=== PATIENT | female | born 1985 | race Caucasian/White ===

== ENCOUNTER → 2020-11-14 10:27 | Outpatient (CLI) | payer OTHER, SELFPAY ==
[2020-11-14 12:08] LABS: Add Manual Diff / Slide Review NO; Basophils Absolute Auto 0 /uL (0-100); Basophils Percent Auto 0.2 % (0-2); Eosinophils Absolute Auto 0 /uL (0-450); Eosinophils Percent Auto 0.6 % (2-4); Hematocrit 33.6 % (36-46); Hemoglobin 11.4 g/dL (12.0-16.0); Lymphocytes Absolute Auto 1400 /uL (1100-4500); Lymphocytes Percent Auto 21.8 % (25-40); Mean Corpuscular HGB Conc 33.8 % (30-36); Mean Corpuscular Volume 100.4 fL (80-100); Monocytes Absolute Auto 300 /uL (0-900); Monocytes Percent Auto 4.2 % (3-14); Neutrophils Absolute Auto 4600 /uL (1500-7000); Neutrophils Percent Auto 73.2 % (50-75); Platelet Count 213 X10^3/uL (150-400); Red Blood Cell Count 3.34 X10^6/uL (4.0-5.2); Red Cell Distribution Width 13.6 % (11.6-14.8); White Blood Cell Count 6.4 X10^3/uL (4.5-11.0)
[2020-11-14 12:32] LABS: Alanine Aminotransferase 15 IU/L (<35); Albumin 3.7 g/dL (3.5-5.0); Albumin Globulin Ratio 1.5 (1.0-2.8); Alkaline Phosphatase 46 U/L (38-126); Aspartate Aminotransferase 20 IU/L (14-36); BUN Creatinine Ratio 13.3 (6-22); Bilirubin Total 0.2 mg/dL (0.2-1.3); Blood Urea Nitrogen 6 mg/dL (7-17); Calcium 9.5 mg/dL (8.4-10.2); Carbon Dioxide 25 mmol/L (22-32); Chloride 101 mmol/L (98-107); Estimated Glomerular Filt Rate > 60.0 mL/min (>60); Globulin 2.4 g/dL (1.7-4.1); Glucose 91 mg/dL (70-100); HEMOLYSIS < 15 (0-50); Potassium 4.1 mmol/L (3.4-5.1); Sodium 133 mmol/L (137-145); Total Protein 6.1 g/dL (6.3-8.2)
[2020-11-14 13:20] LABS: Vitamin B12 328 pg/mL (239-931)
[2020-11-17 21:07] LABS: Gest Age on Col Date 17.9 weeks (.); Insulin Dep Diabetes No (.); OSBR Risk 1IN 10000 (.); Results Report (.); Test Results *Screen Negative* (.)
== END ==
PROVIDERS: Internal Medicine Hematology & Oncology; PCP Family Medicine; Referring Provider Specialist; Visit Provider Specialist
DX: O09.522 Supervision of elderly multigravida, second trimester (principal); E53.8 Deficiency of other specified B group vitamins; Z36.0 Encounter for antenatal screening for chromosomal anomalies
CPT/HCPCS: 36415; 80053; 82105; 82607; 85025

== ENCOUNTER → 2020-11-30 10:51 | Outpatient (CLI) | payer OTHER, SELFPAY ==
--- NOTE | 2020-11-30 10:52 | DI.US.S_ITS ---
PROCEDURE: US OB >= 14 WEEKS FETUS INDICATIONS: 20 week anatomy OUTSIDE/PRIOR DATING DATA: Last menstrual period (LMP): 07/12/2020. LMP-based estimated date of delivery (TERRA): 04/18/2021. First dating scan (date and location): 10/30/2020 at clinician's office. Estimated date of delivery (TERRA) from first dating scan: 04/12/2021. TECHNIQUE: Real-time scanning was performed of the fetus, with image documentation and biometric measurements. Endovaginal scanning: Not performed COMPARISON: [facility], , OB >= 14 WEEKS FETUS, 10/30/2020, 14:41. FINDINGS: General: A single living intrauterine gestation is present. Presentation: Vertex. Placenta: Placental position is posterior , without previa. Amniotic fluid index: 13.3 cm, normal range is 5-24 cm; largest pocket 4.8 cm. heart rate: 143 beats per minute. Maternal cervical canal: 4.5 cm long. Normal lower limit is 2.5 cm. biometrics: Biparietal diameter: 21 weeks 1 day Head circumference: 21 weeks 0 day Abdominal circumference: 21 weeks 6 days Femur length: 21 weeks 1 day Estimated gestational age from initial scan: 21 weeks 0 day. Composite gestational age from present scan: 21 weeks 2 days Estimated weight and percentile: 427 gm; 71% Measurement variability for biometric dating: +/- 7 days from 14 weeks to 15 weeks 6 days gestation, +/- 10 days from 16 weeks to 21 weeks 6 days gestation, +/- 2 weeks from 22 weeks to 27 weeks 6 days gestation, +/- 3 weeks for 28 weeks gestation or later. weight reference: 4500 g or EFW >90/95% is considered macrosomia or large for gestational age. EFW <10% is small for gestational age. EFW 5% or less is considered intra-uterine growth restriction. Anatomic survey: Neuro: Ventricles are non-dilated at less than 10 mm. Cisterna magna is normal at 3-11 mm. Cerebellum is normal in size and morphology. Nuchal skin fold: Normal at less than 6 mm between 14-21 weeks gestational age. Face: Nose and lips, facial profile are normal. Spine: No evidence for spina bifida. Heart: 4-chambered heart is present, with normal ventricular outflow tracts. Diaphragm: Diaphragm is intact. Stomach: Left-sided stomach is present. Kidneys: No hydronephrosis. Normal is less than 5 mm in 2nd trimester, less than 7 mm in 3rd trimester. Cord: 3-vessel cord has orthotopic insertion. Bladder: Normal in size. Extremities: All 4 extremities identified. IMPRESSION: 1. A single living intrauterine gestation with appropriate interval growth. 2. Normal anatomic survey. Dictated by: Charisse Landry M.D. on 12/01/2020 at 17:31 Approved by: Charisse Landry M.D. on 12/01/2020 at 17:34
== END ==
PROVIDERS: PCP Family Medicine; Referring Provider Specialist; Visit Provider Specialist
DX: Z34.82 Encounter for supervision of other normal pregnancy, second trimester (principal); Z3A.21 21 weeks gestation of pregnancy
CPT/HCPCS: 76811

== ENCOUNTER 2021-02-01 16:19 | Observation (INO) | payer OTHER, SELFPAY ==
[2021-02-01 16:45] LABS: Add Manual Diff / Slide Review NO; Basophils Absolute Auto 0 /uL (0-100); Basophils Percent Auto 0.2 % (0-2); Eosinophils Absolute Auto 100 /uL (0-450); Eosinophils Percent Auto 0.8 % (2-4); Hematocrit 32.8 % (36-46); Hemoglobin 11.3 g/dL (12.0-16.0); Lymphocytes Absolute Auto 1800 /uL (1100-4500); Lymphocytes Percent Auto 22.8 % (25-40); Mean Corpuscular HGB Conc 34.3 % (30-36); Mean Corpuscular Hemoglobin 34.6 PG (26-34); Mean Corpuscular Volume 100.8 fL (80-100); Monocytes Absolute Auto 400 /uL (0-900); Monocytes Percent Auto 5.7 % (3-14); Neutrophils Absolute Auto 5500 /uL (1500-7000); Neutrophils Percent Auto 70.5 % (50-75); Platelet Count 237 X10^3/uL (150-400); Red Blood Cell Count 3.26 X10^6/uL (4.0-5.2); Red Cell Distribution Width 13.6 % (11.6-14.8); White Blood Cell Count 7.8 X10^3/uL (4.5-11.0)
[2021-02-01 16:46] LABS: Appearance Urine UA CLEAR; Bilirubin Urine UA NEGATIVE (NEGATIVE); Color Urine UA YELLOW; Glucose Urine UA NEGATIVE (Negative); Ketones Urine UA NEGATIVE (NEGATIVE); Leukocyte Esterase Urine UA TRACE (NEGATIVE); Nitrite Urine UA NEGATIVE (Negative); Occult Blood Urine UA NEGATIVE (Negative); Protein Urine UA NEGATIVE (Negative); RBC Urine None Seen (0-5/HPF); Specific Gravity Urine UA <=1.005 (1.000-1.035); Urobilinogen Urine UA 0.2 E.U./dL (0.2)
[2021-02-01 16:47] LABS: pH Urine UA 6.5 (4.5-8.0)
[2021-02-01 16:53] LABS: Bacteria Urine Occasional (0-1); Culture Indicated Urine Specimen Cultured; Squamous Epithelial Cell Urine 0-1 /HPF (0-5/HPF); WBC Urine 1-5/HPF (0-5/HPF)
[2021-02-01 17:00] LABS: Aspartate Aminotransferase 21 IU/L (14-36); BUN Creatinine Ratio 15.2 (6-22); Blood Urea Nitrogen 7 mg/dL (7-17); Estimated Glomerular Filt Rate > 60.0 mL/min (>60); Uric Acid 2.7 mg/dL (2.5-6.2)
--- NOTE | 2021-02-01 17:26 | P.TNLD_ITS ---
Visit Information Visit Information Date of evaluation: 02/01/21 Primary OB Provider: Rebekah Gomez On-call OB Provider: Lian Taylor Reason for Evaluation: Yes non-stress test Comments/Additional reasons for admission: THis patient is a 35yo @29+1 with a c/b cHTN having declined labetalo, smoking, and morbid obesity, presenting for [facility] evaluation. Patient reports RONDON, upper abdominal pain with 'roller coaster drop feeling,' fatigue, concern for excessive yawning. No obstet rical complaints. Vital Signs Vital Signs: 117/72, 126/68, HR 80s [facility] Medical History Anemia Anxiety (~2005) Chronic hypertension (~08/2020) Depression (~2005) Dysmenorrhea (~1999) Endometriosis (~2002) Food allergy Lower back injury (~2014) Migraine (~2014) Morbid obesity Neuropathy (~2014) Surgical History Hx of wisdom tooth extraction (~2005) Family History Mother Hypertension Depression PTSD (post-traumatic stress disorder) Anxiety Endometriosis Father H/O heart artery stent Smoker Hypertension Grandmother Thyroid disease Dementia Depression Endometriosis Grandfather No problems noted. 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 ) current occupational exposures/hazards: No haider/druze: Orthodox special haider needs: No seatbelt use: always do you feel safe at home: Yes (Very safe. ) Smoking Status: Current every day smoker (Cut down to 4-5 cigs/day, trying to completely quit, struggling. ) Tobacco: How many years used: 10 second hand exposure: Yes ( also smokes. ) alcohol intake: current (2 beers a week) substance use type: does not use during the past year weight has: increased > 10 lbs well-balanced diet: daily or most days (Eating better this last month; Apr - Aug did not have a kitchen;mostly microwave prior.) daily servings fruits/ve-1 caffeine: Yes Type(s) of exercise: walking (Trying to walk a mile on the track when she can. ) and sedentary lifestyle Exam Narrative Exam Narrative: Well appearing resting in bed Const General: cooperative, healthy appearing and comfortable Resp Effort & Inspection: normal respiratory effort Auscultation: clear to auscultation bilaterally Cardio Rate: regular rate Rhythm: regular rhythm GI Palpation: soft and No tender Extrem General: normal to inspection Objective Labs Result Diagrams: 02/01/21 16:41 02/01/21 16:41 Labs: Laboratory Results - last 24 hr 02/01/21 02/01/21 02/01/21 16:41 16:41 16:41 WBC 7.8 RBC 3.26 L Hgb 11.3 L Hct 32.8 L MCV 100.8 H MCH 34.6 H MCHC 34.3 RDW 13.6 Plt Count 237 Neut % (Auto) 70.5 Lymph % (Auto) 22.8 L [place] % (Auto) 5.7 Eos % (Auto) 0.8 L Baso % (Auto) 0.2 Neut # (Auto) 5500 Lymph # (Auto) 1800 [place] # (Auto) 400 Eos # (Auto) 100 Baso # (Auto) 0 BUN 7 Creatinine 0.46 L Estimated GFR > 60.0 BUN/Creatinine Ratio 15.2 Uric Acid 2.7 AST 21 Urine Color Yellow Urine Appearance Clear Urine pH 6.5 Ur Specific [place] <=1.005 Urine Protein Negative Urine Glucose (UA) Negative Urine Ketones Negative Urine Occult Blood Negative Urine Nitrate Negative Urine Bilirubin Negative Urine Urobilinogen 0.2 Ur Leukocyte Esterase Trace H Urine RBC None seen Urine WBC 1-5/hpf Ur Squamous Epith Cells 0-1 /hpf Urine Bacteria Occasional (0-1) Ur Culture Indicated? Specimen cultured Evaluation Evaluation Baseline heart rate: 130 Variability: Moderate (11-25) monitor accelerations: Present Monitor Decelerations: Absent Category of Tracing: Reactive Status: Category l Laboratory results: Laboratory Tests 02/01/21 02/01/21 02/01/21 16:41 16:41 16:41 WBC 7.8 RBC 3.26 L Hgb 11.3 L Hct 32.8 L MCV 100.8 H MCH 34.6 H MCHC 34.3 RDW 13.6 Plt Count 237 Neut % (Auto) 70.5 Lymph % (Auto) 22.8 L [place] % (Auto) 5.7 Eos % (Auto) 0.8 L Baso % (Auto) 0.2 Neut # (Auto) 5500 Lymph # (Auto) 1800 [place] # (Auto) 400 Eos # (Auto) 100 Baso # (Auto) 0 BUN 7 Creatinine 0.46 L Estimated GFR > 60.0 BUN/Creatinine Ratio 15.2 Uric Acid 2.7 AST 21 Urine Color Yellow Urine Appearance Clear Urine pH 6.5 Ur Specific [place] <=1.005 Urine Protein Negative Urine Glucose (UA) Negative Urine Ketones Negative Urine Occult Blood Negative Urine Nitrate Negative Urine Bilirubin Negative Urine Urobilinogen 0.2 Ur Leukocyte Esterase Trace H Urine RBC None seen Urine WBC 1-5/hpf Ur Squamous Epith Cells 0-1 /hpf Urine Bacteria Occasional (0-1) Ur Culture Indicated? Specimen cultured Comments: EKG w/in normal limits, evaluated by hospitalist Diagnosis, Plan/Disposition Plan/Disposition Plan: This patient presents with a constellation of symptoms of unclear etiology, but has normal BPs, normal PIH labs, a normal EKG, and normal testing here. Precautions for PIH and cardiac disease were discussed. Patient has scheduled f/u in 4 days. OB Disposition: home
== END 2021-02-01 19:28 | disposition home or self-care (01) ==
PROVIDERS: Admitting Provider Specialist; PCP Family Medicine; Referring Provider Specialist; Visit Provider Specialist
DX: O09.513 Supervision of elderly primigravida, third trimester (principal); O26.813 Pregnancy related exhaustion and fatigue, third trimester; Z3A.30 30 weeks gestation of pregnancy
CPT/HCPCS: 59025; 59050; 81001; 84450; 84550; 85025; 87077; 87086; 93005; 93010; G0378; G0379

== ENCOUNTER 2021-03-05 15:08 | Outpatient (CLI) | payer OTHER, SELFPAY | END 2021-03-05 16:10 | disposition home or self-care (01) | LOC: LABOR 15:50 → OB 03-10 15:03 | PROVIDERS: PCP Family Medicine; Referring Provider Specialist; Visit Provider Specialist | DX: O26.893 Other specified pregnancy related conditions, third trimester (principal); O99.013 Anemia complicating pregnancy, third trimester; R10.2 Pelvic and perineal pain; E53.9 Vitamin B deficiency, unspecified; Z3A.34 34 weeks gestation of pregnancy | CPT/HCPCS: 59025; G0378; G0379 ==

== ENCOUNTER → 2021-03-19 15:29 | Outpatient (CLI) | payer OTHER, SELFPAY ==
[2021-03-20 13:13] LABS: Strep Grp B PCR NEG for Grp B Strep
== END ==
PROVIDERS: PCP Family Medicine; Visit Provider Specialist
DX: Z34.03 Encounter for supervision of normal first pregnancy, third trimester (principal); Z3A.35 35 weeks gestation of pregnancy
CPT/HCPCS: 87653

== ENCOUNTER 2021-04-20 11:15 | Outpatient (CLI) | payer OTHER, SELFPAY ==
--- NOTE | 2021-04-20 12:03 | P.TNLD_ITS ---
Visit Information Visit Information Date of evaluation: 04/20/21 Primary OB Provider: Rebekah Gomez Reason for Evaluation: Yes non-stress test non-stress test reason: diabetes, hypertension/pre-eclampsia and other Comments/Additional reasons for admission: 40 weeks [facility] Medical History (Updated 04/20/21 @ 12:05 by Rebekah Gomez MD) Anemia Anxiety (~2005) Chronic hypertension (~08/2020) Depression (~2005) Dysmenorrhea (~1999) Endometriosis (~2002) Food allergy Lower back injury (~2014) Migraine (~2014) Morbid obesity Neuropathy (~2014) Surgical History Hx of wisdom tooth extraction (~2005) Family History Mother Hypertension Depression PTSD (post-traumatic stress disorder) Anxiety Endometriosis Father H/O heart artery stent Smoker Hypertension Grandmother Thyroid disease Dementia Depression Endometriosis Grandfather No problems noted. 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 ) current occupational exposures/hazards: No haider/muslim: Pent[employer]ostalism special haider needs: No seatbelt use: always do you feel safe at home: Yes (Very safe. ) Smoking Status: Former smoker (Cut down to 4-5 cigs/day, trying to completely quit, struggling. ) Tobacco: How many years used: 10 second hand exposure: Yes ( also smokes. ) alcohol intake: current (2 beers a week) substance use type: does not use during the past year weight has: increased > 10 lbs well-balanced diet: daily or most days (Eating better this last month; Apr - Aug did not have a kitchen;mostly microwave prior.) daily servings fruits/ve-1 caffeine: Yes Type(s) of exercise: walking (Trying to walk a mile on the track when she can. ) and sedentary lifestyle Evaluation Evaluation Baseline heart rate: 120 Variability: Moderate (11-25) monitor accelerations: Present Monitor Decelerations: Absent Diagnosis, Plan/Disposition Final Diagnosis (1) 40 weeks gestation of : Status: Acute Plan/Disposition Plan: Follow-up in 3 days OB Disposition: home
== END 2021-04-20 12:15 | disposition home or self-care (01) ==
LOC: LABOR 11:26 → OB 05-12 13:03
PROVIDERS: PCP Family Medicine; Referring Provider Specialist; Visit Provider Specialist
DX: O48.0 Post-term pregnancy (principal); O24.913 Unspecified diabetes mellitus in pregnancy, third trimester; O16.3 Unspecified maternal hypertension, third trimester; Z3A.40 40 weeks gestation of pregnancy
CPT/HCPCS: 59025; G0378; G0379

== ENCOUNTER 2021-04-22 09:26 | Inpatient (IN) | payer OTHER, SELFPAY ==
[2021-04-22 11:57] LABS: Add Manual Diff / Slide Review NO; Basophils Absolute Auto 0 /uL (0-100); Basophils Percent Auto 0.4 % (0-2); Eosinophils Absolute Auto 100 /uL (0-450); Eosinophils Percent Auto 0.8 % (2-4); Hematocrit 32.1 % (36-46); Hemoglobin 10.6 g/dL (12.0-16.0); Lymphocytes Absolute Auto 1400 /uL (1100-4500); Lymphocytes Percent Auto 15.2 % (25-40); Mean Corpuscular HGB Conc 33.1 % (30-36); Mean Corpuscular Volume 99.6 fL (80-100); Monocytes Absolute Auto 500 /uL (0-900); Monocytes Percent Auto 5.4 % (3-14); Neutrophils Absolute Auto 7000 /uL (1500-7000); Neutrophils Percent Auto 78.2 % (50-75); Platelet Count 261 X10^3/uL (150-400); Red Blood Cell Count 3.22 X10^6/uL (4.0-5.2); Red Cell Distribution Width 13.5 % (11.6-14.8); White Blood Cell Count 8.9 X10^3/uL (4.5-11.0)
--- NOTE | 2021-04-22 13:26 | PM.OBHP.1 ---
OB HPI Date/Time Date of admission: 04/22/21 Date Patient Seen: 04/22/21 Time Patient Seen: 10:00 History of Present Condition Chief complaint: : 1 Para: 0 Estimated Date of Delivery: 04/18/21 Estimated Gestational Age (weeks): 40 Narrative: Yesenia Henriquez is a 35 year old female admitted at 40 weeks gestation with spontaneous rupture membranes History of Present care: good care, initiated at week # (8), number of visits (13) and pounds weight gain (15) Dating criteria: LMP confirmed by 1st trimester US Ultrasounds: normal mid trimester US Medical complications: cardiovascular Narrative: Patient with history of chronic hypertension 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 Her blood pressure sugars actually remained good throughout the Preadmission Labs Blood type: A (+) positive -: Antibody screen: negative, GBS status: negative, HBsAG: negative, HIV: negative and RPR/VDLR: negative -: Chlamydia screen: not detected and Gonorrhea screen: not detected -: Rubella: immune and Varicella: unknown (Recent history of chickenpox.) HCAB: negative Cell-free DNA: Normal male 1 hr GTT: 134 Evaluation Evaluation Baseline heart rate: 115 Variability: Moderate (11-25) monitor accelerations: Present Monitor Decelerations: Absent Contraction Frequency (minutes): 5 Uterine Contraction Intensity: Moderate Category of Tracing: Reactive Cervical dilation (cm): 1 Cervical effacement (%): 0 station: -4 Non-invasive Membranes Rupture Test: positive [facility] Medical History (Updated 04/20/21 @ 12:05 by Rebekah Gomez MD) Anemia Anxiety (~2005) Chronic hypertension (~08/2020) Depression (~2005) Dysmenorrhea (~1999) Endometriosis (~2002) Food allergy Lower back injury (~2014) Migraine (~2014) Morbid obesity Neuropathy (~2014) Surgical History Hx of wisdom tooth extraction (~2005) Family History Mother Hypertension Depression PTSD (post-traumatic stress disorder) Anxiety Endometriosis Father H/O heart artery stent Smoker Hypertension Grandmother Thyroid disease Dementia Depression Endometriosis Grandfather No problems noted. 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 ) current occupational exposures/hazards: No haider/taoist: Druze special haider needs: No seatbelt use: always do you feel safe at home: Yes (Very safe. ) Smoking Status: Former smoker (Cut down to 4-5 cigs/day, trying to completely quit, struggling. ) Tobacco: How many years used: 10 second hand exposure: Yes ( also smokes. ) alcohol intake: current (2 beers a week) substance use type: does not use during the past year weight has: increased > 10 lbs well-balanced diet: daily or most days (Eating better this last month; Apr -Aug did not have a kitchen;mostly microwave prior.) daily servings fruits/ve-1 caffeine: Yes Type(s) of exercise: walking (Trying to walk a mile on the track when she can. ) and sedentary lifestyle Meds Home Medications and Allergies Home Medications Medication Instructions Recorded Confirmed Type aspirin 81 mg tablet,delayed 81 mg PO DAILY 10/23/20 04/20/21 History release (Adult Aspirin Regimen) prenat.vits,renny,xwj-iusz-evrad 1 tab PO DAILY 10/23/20 04/20/21 History sertraline 100 mg tablet 100 mg PO DAILY #30 tab 03/19/21 04/20/21 Rx Allergies Allergy/AdvReac Type Severity Reaction Status Date / Time Penicillins Allergy Severe Swelling Verified 10/23/20 12:13 of Lip/Tongue/Throat, Rash Beef Containing Products Allergy Intermediate Stomach Verified 10/23/20 12:13 pain, skin flare up. diphenhydramine Allergy Intermediate Swelling Verified 10/23/20 12:13 [From Benadryl] of Lip/Tongue/Throat gelatin Allergy Intermediate Stomach Verified 10/23/20 12:13 pain, indigestion, skin flare up. hydromorphone [From Dilaudid] Allergy Intermediate Severe Verified 10/23/20 12:13 anxiety & panic Milk Containing Products Allergy Intermediate Stomach Verified 10/23/20 12:13 pain, skin issues. sesame seed Allergy Intermediate Verified 10/23/20 12:13 Yeast Allergy Intermediate Stomach Verified 10/23/20 12:13 pain, skin flare up. Review of Systems Review of Systems Narrative: Patient with spontaneous rupture membranes at 8:00 a.m.. Beginning to have increasing contractions. Good movement. No headaches, scotomata, epigastric pain. No vaginal bleeding ROS: Yes All systems reviewed with the patient and are negative except as otherwise documented Exam Vital Signs (past 8 hours): Blood pressure 130/79, pulse of 91, temperature 36.4? Narrative Exam Narrative: HEENT exam within normal limits. Lungs are clear to auscultation percussion. Heart is regular rate rhythm no S3-S4 murmurs. Abdomen is gravid, nontender Fetus is vertex. Extremities without edema and nontender. Objective Labs Result Diagrams: 04/22/21 11:25 Labs: Laboratory Results - last 24 hr 04/22/21 04/22/21 11:25 11:25 WBC 8.9 RBC 3.22 L Hgb 10.6 L Hct 32.1 L MCV 99.6 MCH 33.0 MCHC 33.1 RDW 13.5 Plt Count 261 Neut % (Auto) 78.2 H Lymph % (Auto) 15.2 L [place] % (Auto) 5.4 Eos % (Auto) 0.8 L Baso % (Auto) 0.4 Neut # (Auto) 7000 Lymph # (Auto) 1400 [place] # (Auto) 500 Eos # (Auto) 100 Baso # (Auto) 0 Blood Type A Positive Antibody Screen Negative Assessment and Plan Assessment and Plan Assessment and Plan narrative: 40 week gestation with spontaneous rupture membranes. LGA infant. Patient with increasing contractions and requests delaying Pitocin at this time. Patient also with non favorable cervix. Anticipate probable section for LGA but patient is requesting attempt at labor.
[2021-04-22 14:00] LABS: COVID19 - ADMIT (NP swab/PCR) Negative (Negative)
[2021-04-22] MEDS: LACTATED RINGERS 1,000 ML 100 ML IV (20:34)
[2021-04-22] MEDS: ONDANSETRON 4 MG/2 ML INJ IV (21:22)
[2021-04-23] VITALS (8 sets, daily range): BP systolic 112–124; BP diastolic 52–72; PULSE 85–96; RESP 11–17; TEMP 36.4–36.9; O2SAT 95–100
--- NOTE | 2021-04-23 00:07 | PM.AN.REGBLK ---
Regional Block Pre-procedure Procedure: Continuous Lumbar Epidural for L&D Attending OB provider: Rebekah Gomez PMH/ROS narrative: MDD, B12 deficiency anemia, large fetus, , obesity Hx: No personal or family history of anesthesia problems. PSH/Anesthesia history narrative: none Exam narrative: MP1, RRR, CTAB ASA Class: III Labs: Hct 32.1 % (36-46) L 04/22/21 11:25 Plt Count 261 X10^3/uL (150-400) 04/22/21 11:25 Medications: Current Medications Generic Name Dose Route Start Last Admin Trade Name Freq PRN Reason Stop Dose Admin Calcium Carbonate 1,000 mg 04/22/21 11:12 Calcium Carbonate 500 Mg Tab PO Q2HR PRN Dyspepsia Carboprost Tromethamine 250 mcg 04/22/21 11:12 Carboprost 250 Mcg/Ml Ampul IM Q90M PRN Bleeding Lactated Ringer's 1,000 mls @ 100 mls/hr 04/22/21 11:15 04/22/21 20:34 Lactated Ringers IV 100 mls/hr CONT KODAK Administration Oxytocin/Lactated Ringer's 30 unit in 500 mls @ 200 mls/hr 04/22/21 11:12 Oxytocin Premix IV CONT PRN Bleeding Protocol Tranexamic Acid 1,000 mg/ 100 mls @ 200 mls/hr 04/22/21 11:12 Sodium Chloride IV NOW PRN Bleeding Methylergonovine Maleate 0.2 mg 04/22/21 11:12 Methylergonovine 0.2 Mg/Ml Vial IM NOW PRN Bleeding Methylergonovine Maleate 0.2 mg 04/22/21 11:12 Methylergonovine 0.2 Mg Tablet PO Q6HR PRN Heavy Bleeding Misoprostol 1,000 mcg 04/22/21 11:12 Misoprostol 200 Mcg Tablet RI NOW PRN Bleeding Misoprostol 400 mcg 04/22/21 11:12 Misoprostol 200 Mcg Tablet SL NOW PRN Bleeding Misoprostol 800 mcg 04/22/21 11:12 Misoprostol 200 Mcg Tablet RI NOW PRN Bleeding Ondansetron HCl 4 mg 04/22/21 11:12 04/22/21 21:22 Ondansetron 4 Mg/2 Ml Inj IV 4 mg Q4HR PRN Administration Nausea And Vomiting Oxytocin 10 unit 04/22/21 11:12 Oxytocin 10 Unit/Ml Vial IM NOW PRN Bleeding Sertraline HCl 100 mg 04/22/21 21:00 Sertraline 50 Mg Tablet PO BEDTIME KODAK Allergies: Allergies Allergy/AdvReac Type Severity Reaction Status Date / Time Penicillins Allergy Severe Swelling Verified 10/23/20 12:13 of Lip/Tongue/Throat, Rash Beef Containing Products Allergy Intermediate Stomach Verified 10/23/20 12:13 pain, skin flare up. diphenhydramine Allergy Intermediate Swelling Verified 10/23/20 12:13 [From Benadryl] of Lip/Tongue/Throat gelatin Allergy Intermediate Stomach Verified 10/23/20 12:13 pain, indigestion, skin flare up. hydromorphone [From Dilaudid] Allergy Intermediate Severe Verified 10/23/20 12:13 anxiety & panic Milk Containing Products Allergy Intermediate Stomach Verified 10/23/20 12:13 pain, skin issues. sesame seed Allergy Intermediate Verified 10/23/20 12:13 Yeast Allergy Intermediate Stomach Verified 10/23/20 12:13 pain, skin flare up. Procedure Insertion date: 04/22/21 Insertion time: 23:44 Prep/Local: betadine x3 (chloroprep) and 1% lidocaine Interspace: L3-4 Patient position: sitting Needle: 18 gauge Hustead (with 27G needle through needle for dural puncture) Loss of resistance with: saline SARA at (cm): 0 (7.5) Catheter placed at SKIN (cm): 13 Catheter in SPACE (cm): 0 (5.5) Insertion: Yes CSF, No Blood, No Paresthesia with insertion, No Paresthesia with injection and No Test dose reaction Initial Medications TEST DOSE time: 23:44 TEST DOSE: 1.5% lidocaine with epinephrine 1:200k (mL): 5 BOLUS DOSE time: 23:45 BOLUS DOSE (mL): 2 BOLUS DOSE med: other (10mcg fentanyl intrathecally, 90mcg fentanyl via epidural catheter) Infusion INFUSION: 0.0625% bupivacaine and with fentanyl 2 mcg/mL Initial rate (mL/hr): 12 Post-procedure Anesthesia time START: 23:27 Anesthesia time END: 04:14 Post-procedure Anesthesia Assessment: No Anesthesia complications (to for failure to progress)
[2021-04-23] MEDS: LACTATED RINGERS 1,000 ML 100 ML IV ×3 (01:35→07:42)
[2021-04-23] MEDS: CALCIUM CARBONATE 500 MG TAB 1000 MG PO (03:17)
--- NOTE | 2021-04-23 03:58 | PM.PREOP ---
Pre-operative Note COVID-19 COVID-19 status: Negative Result date/Date tested (Pos, Neg/Pending): 04/22/21 Interval Note History & Physical reviewed/Exam performed by Physician: Yes Changes to H&P: Yes H&P completed within 30 days and has changed as indicated here:: 1st stage arrest
--- NOTE | 2021-04-23 04:03 | PM.OBPNLAB ---
Date/Time Date Patient Seen: 04/23/21 Time Patient Seen: 04:03 Pain Control Pain control: epidural Pelvic Exam Dilation (cm): 6 Effacement (%): 90 station: -4 Amniotic membrane status: Ruptured (Meconium-stained) Contractions Contractions on admission: regular Monitor mode: External Contraction frequency (min): 4 Contraction duration (min): 1 Contraction pattern: Regular Contraction intensity: Strong/Firm Status status: Category l Heart Rate Baseline: 115 Monitor Accelerations: Present Monitor Decelerations: Absent Monitor Variability: Moderate Assessment and Plan Plan: Comments: 1st stage arrest. We will proceed with section. Consent form for the section was reviewed with the patient. The procedure discussed with the patient. She declined reviewing the risks of the procedure. Patient is agreeable to blood transfusion if necessary to save her life. Consent form signed and questions answered. and mother were present for this discussion.
[2021-04-23] MEDS: CEFAZOLIN 1 GM VIAL 2 GM IV (04:27)
--- NOTE | 2021-04-23 05:00 | SUR.OPER ---
Supine on Padded OR bed, head on pillow, safety belt at thigh, arms secured on padded arm boards at <90 degrees abduction. Bump under right buttock. Legs uncrossed with pillow under knees, gel pad to heels, tape over blanket to lower legs.
--- NOTE | 2021-04-23 05:08 | SUR.OPER ---
FHT 121 live male born at 0445
--- NOTE | 2021-04-23 05:36 | PM.OP.1 ---
Operative Date/Time/Diagnoses Date of procedure: 04/23/21 Time of procedure: 05:36 Pre-op diagnosis: 1st stage arrest Post-op diagnosis: same Procedure & Clinicians Procedure: Primary low-transverse section Same procedure as scheduled: Yes Indications: 1st stage arrest Surgeon: Rebekah Gomez Grader Patrol: Elidia Quiroga Anesthesia Type: Epidural Operative Notes Findings: Normal tubes, ovaries, uterus. Viable male infant weighing 11 lb 1 oz with Apgars of 8 and 8 Closure Type: primary Specimen(s): none sent Applied: catheter ([place]) Estimated Blood Loss (mL): 600 Blood products transfused: none Procedure in detail: The patient was brought to the operating room where she underwent bolus of her epiduralfor anesthesia. She was placed in a supine position with a left lateral tilt. A E[place] catheter was in place. Pulsatile stockings were placed and functional throughout the case. 2 g of Ancef were given IV prior to the incision. Warming was in place. The patient was prepped and draped in usual sterile fashion. A low transverse incision was made with a scalpel and the incision was carried down to the fascial layer which was incised transversely with scissors. The senior underwriting assistant did her side of the incision. The midline attachments are superiorly and inferiorly. Some bleeding was controlled Bovie. The rectus muscles were in the midline and the peritoneal incision was made with no damage to internal structures. The peritoneum was incised and superiorly and inferiorly. The incision was stretched with the surgeon and senior underwriting assistant placing traction. Bladder blade was placed and a bladder flap was developed and the bladder held away from the lower uterine segment. An incision was made in the uterus with the scalpel and the incision was extended with stretching. The head was elevated out of the abdomen and with fundal pressure by the senior underwriting assistant the baby was delivered. The infant was bulb suctioned for meconium stainedfluid and handed off to the warmer. Cord blood was collected. The placenta delivered spontaneously with traction. The uterus was cleaned with clean laps. The uterine incision was closed in 2 layers of 0 chromic suture the first a running locking layer the second an imbricating layer. The senior underwriting assistant was helping to expose the incision. The bladder peritoneum was repaired with 2-0 Vicryl suture. The gutters were cleaned of any remaining fluids and ovaries and tubes were observed to be normal. Adequate hemostasis was noted. The perineum was closed with 2-0 Vicryl suture. The fascia layer was closed with 0 Vicryl suture with 2 stitches. The senior underwriting assistant repairing half the incision with helping to retract and expose the incision for the other half. The incision was irrigated and adequate hemostasis noted. The incision was closed with interrupted 3-0 Vicryl sutures and then a subcuticular stitch of 4-0 Vicryl suture. Steri-Strips were placed. The uterus was massaged to remove any clots. The patient went to recovery room in good condition. Counts of instruments and sponges were correct. Dr. Quiroga was present throughout the case to assist with retraction, fundal pressure to deliver the , and suturing half the fascia. Complications: none Post-operative Condition: stable Disposition: other ( Center) Plan for aftercare: Routine post section
[2021-04-23] MEDS: DOCUSATE 100 MG CAPSULE 200 MG PO (09:29)
[2021-04-23] MEDS: SERTRALINE 50 MG TABLET 100 MG PO (09:29)
[2021-04-23] MEDS: PRENATAL VIT,CALC/IRON/FOLIC 1 TABLET 1 TAB PO (09:29)
[2021-04-23] MEDS: KETOROLAC 30 MG/ML VIAL IV (11:39)
[2021-04-23] MEDS: LANOLIN OINT 7 GM 1 APPLIC TOP (13:36)
[2021-04-23] MEDS: IBUPROFEN 600 MG TABLET PO ×2 (18:01→23:39)
[2021-04-23] MEDS: ACETAMINOPHEN 325 MG TABLET 650 MG PO (23:38)
[2021-04-24] MEDS: IBUPROFEN 600 MG TABLET PO ×3 (06:07→20:03)
[2021-04-24] MEDS: DOCUSATE 100 MG CAPSULE 200 MG PO (07:50)
[2021-04-24] MEDS: PRENATAL VIT,CALC/IRON/FOLIC 1 TABLET 1 TAB PO (07:53)
[2021-04-24] MEDS: ACETAMINOPHEN 325 MG TABLET 650 MG PO ×3 (07:54→21:54)
[2021-04-24] MEDS: OXYCODONE IR 5 MG TABLET PO (10:44)
--- NOTE | 2021-04-24 10:46 | P.PNOB_ITS ---
Subjective - OB Subjective Patient comments: incisional pain and flatus present baby status: doing well and nursing well [place] feeding status: exclusively breast feeding Date Patient Seen: 04/24/21 Time Patient Seen: 10:46 Interval history: Postoperative day 1. Primary low-transverse section for for stage arrest due to LGA infant. Exam Vital Signs (past 8 hours): Blood pressure 117/68, pulse 74, temperature 98.2? Oxygen Delivery Method Room Air Narrative Exam Narrative: Abdomen is soft, minimally tender. Dressing is clean, dry, intact. Uterus is firm, at U, minimally tender. Mild lochia. Extremities with trace edema. Patient has a tender spot on her right leg anterior no evidence of DVT. Objective Labs Result Diagrams: 04/22/21 11:25 Assessment & Plan Plan day: 1 plan OB: routine postop care Time Spent With Patient Time: Total time spent is greater than 50% in coordination of care (as documented) at patient's floor/unit and/or counseling patient: Time with patient: less than 15 minutes
[2021-04-24 15:10] LABS: Add Manual Diff / Slide Review NO; Basophils Absolute Auto 0 /uL (0-100); Basophils Percent Auto 0.2 % (0-2); Eosinophils Absolute Auto 200 /uL (0-450); Eosinophils Percent Auto 1.7 % (2-4); Hematocrit 27.1 % (36-46); Hemoglobin 9.1 g/dL (12.0-16.0); Lymphocytes Absolute Auto 1600 /uL (1100-4500); Lymphocytes Percent Auto 16.8 % (25-40); Mean Corpuscular HGB Conc 33.8 % (30-36); Mean Corpuscular Hemoglobin 33.7 PG (26-34); Mean Corpuscular Volume 99.7 fL (80-100); Monocytes Absolute Auto 500 /uL (0-900); Monocytes Percent Auto 5.4 % (3-14); Neutrophils Absolute Auto 7200 /uL (1500-7000); Neutrophils Percent Auto 75.9 % (50-75); Platelet Count 263 X10^3/uL (150-400); Red Blood Cell Count 2.71 X10^6/uL (4.0-5.2); Red Cell Distribution Width 13.6 % (11.6-14.8); White Blood Cell Count 9.4 X10^3/uL (4.5-11.0)
[2021-04-24 19:21] VITALS: BP 138/79
[2021-04-25] MEDS: IBUPROFEN 600 MG TABLET PO ×2 (02:01→08:21)
[2021-04-25] MEDS: ACETAMINOPHEN 325 MG TABLET 650 MG PO ×2 (05:45→11:24)
[2021-04-25] MEDS: OXYCODONE IR 5 MG TABLET PO ×2 (05:49→11:23)
[2021-04-25] MEDS: PRENATAL VIT,CALC/IRON/FOLIC 1 TABLET 1 TAB PO (08:20)
[2021-04-25] MEDS: DOCUSATE 100 MG CAPSULE 200 MG PO (08:20)
[2021-04-25] MEDS: SERTRALINE 50 MG TABLET 100 MG PO (08:20)
--- NOTE | 2021-04-25 09:21 | PM.OBDS.1 ---
Discharge Providers Provider Date of admission: 04/22/21 09:26 Discharge Date: 04/25/21 Primary care physician: Jake Fermin MD Consults: 04/22/21 11:12 Consult to Anesthesiology Urgent Comment: Consulting Provider: Anesthesiologist Reason for consultation: Epidural Has provider been notified: No 04/23/21 05:37 Consult to Stone Setter Apprentice Routine Comment: Discharge provider: Rebekah Gomez MD Summary Hospital Course Date Patient Seen: 04/25/21 Time Patient Seen: 09:21 Diagnoses: Primary low-transverse section at 40 weeks due to 1st stage arrest Hospital Course: Patient arrived on Labor and delivery after spontaneous rupture membranes. She received an epidural catheter for pain control. She had 1st stage arrest and had a primary low-transverse section. Patient is urinating and ambulating. Pain is under control. She is passing gas. She is tired and cries easily but denies any concerns for depression. Peripartum Data Delivery Method: Section complications: none [place] 1: Gender: Male Disposition of : home Discharge Diagnosis (1) Delivery by section using transverse incision of lower segment of uterus: Status: Acute Status at Discharge Cognitive/behavioral status at discharge: oriented Functional status at discharge: independent ambulation Overall status at discharge: patient is progressing back to baseline Time Spent with Patient Time attestation: Total time spent providing and/or coordinating discharge services: Time spent: Less than 30 minutes Objective Labs Result Diagrams: 04/24/21 15:04 Labs: Laboratory Results - last 24 hr 04/24/21 15:04 WBC 9.4 RBC 2.71 L Hgb 9.1 L Hct 27.1 L MCV 99.7 MCH 33.7 MCHC 33.8 RDW 13.6 Plt Count 263 Neut % (Auto) 75.9 H Lymph % (Auto) 16.8 L [place] % (Auto) 5.4 Eos % (Auto) 1.7 L Baso % (Auto) 0.2 Neut # (Auto) 7200 H Lymph # (Auto) 1600 [place] # (Auto) 500 Eos # (Auto) 200 Baso # (Auto) 0 Exam Vital Signs (past 8 hours): Blood pressure 119/68, pulse 72, temperature 98.1? Oxygen Delivery Method Room Air Narrative Exam Narrative: Patient's abdomen is soft, nontender. Uterus is firm, at U, appropriately tender. Dressing is clean, dry, intact. Mild lochia. Extremities with trace edema and nontender. Patient's blood type is A positive. She is rubella immune. She received Tdap in the 3rd trimester. Discharge Plan Discharge Plan Patient Disposition: Home Provider Discharge Comment: Patient is to continue taking her extra iron as well as her vitamins Discharge orders & Medications Prescriptions: New ibuprofen 600 mg Tablet 600 mg PO Q6H PRN (Reason: Fever/Mild Pain (1-3)) Qty: 30 RF: 0 oxycodone 5 mg Tablet 5 mg PO Q4H PRN (Reason: Pain, Moderate (4-6)) Qty: 20 RF: 0 Continued sertraline 100 mg tablet 100 mg PO DAILY Qty: 30 RF: 4 prenat.vits,renny,[id number] Tablet 1 tab PO DAILY RF: 0 Discontinued aspirin [Adult Aspirin Regimen] 81 mg tablet,delayed release (DR/EC) 81 mg PO DAILY RF: 0 Follow up/Referrals: Rebekah Gomez MD [Physician] - 04/28/21 10:30 am (1 week removal aquacel at [facility] with Dr. Quiroga) Jake Fermin MD [Primary Care Provider] - Diet/Activity/Treatments Diet: Regular Activity: Nothing in vagina or lifting over 20 lb for 6 weeks Skin/Wound/Dressing Care Report to your healthcare provider any signs of infection, such as:: chills, fever and increased pain Dressing: Dressing will be removed by MD in 1 week Discharge Data Primary Care Provider: Jake Fermin
== END 2021-04-25 12:15 | disposition home or self-care (01) | DRG 787 ==
PROVIDERS: Admitting Provider Specialist; PCP Family Medicine; Referring Provider Specialist; Visit Provider Specialist
PROC: 10D00Z1 Extraction of Products of Conception, Low, Open Approach (ICD-10-PCS; CPT 59514; principal; 2021-04-23 04:00)
DX: O42.02 Full-term premature rupture of membranes, onset of labor within 24 hours of rupture (principal); O10.92 Unspecified pre-existing hypertension complicating childbirth; O99.214 Obesity complicating childbirth; O62.1 Secondary uterine inertia; Z3A.40 40 weeks gestation of pregnancy; Z37.0 Single live birth; Z20.822 Contact with and (suspected) exposure to COVID-19; O77.0 Labor and delivery complicated by meconium in amniotic fluid
CPT/HCPCS: 01967; 01968; 36415; 59050; 59510; 59514; 84112; 85025; 86850; 86900; 86901; 87635; C9803; G0379; J0690; J1885; J2274; J2405; J2590

== ENCOUNTER → 2021-05-27 13:24 | Outpatient (CLI) | payer OTHER, SELFPAY ==
[2021-05-27 20:53] LABS: Clostridium Difficile Tox PCR Negative for C. diff (Negative)
== END ==
PROVIDERS: PCP Family Medicine; Visit Provider Specialist
DX: R19.7 Diarrhea, unspecified (principal)
CPT/HCPCS: 87493

== ENCOUNTER → 2021-06-11 12:29 | Outpatient (CLI) | payer OTHER, SELFPAY ==
[2021-06-11 13:24] LABS: Add Manual Diff / Slide Review NO; Basophils Absolute Auto 0 /uL (0-100); Basophils Percent Auto 0.7 % (0-2); Eosinophils Absolute Auto 100 /uL (0-450); Hematocrit 30.8 % (36-46); Hemoglobin 10.5 g/dL (12.0-16.0); Lymphocytes Absolute Auto 1800 /uL (1100-4500); Mean Corpuscular HGB Conc 33.9 % (30-36); Mean Corpuscular Hemoglobin 32.2 PG (26-34); Monocytes Absolute Auto 200 /uL (0-900); Monocytes Percent Auto 5.9 % (3-14); Neutrophils Absolute Auto 2100 /uL (1500-7000); Neutrophils Percent Auto 49.4 % (50-75); Platelet Count 332 X10^3/uL (150-400); Red Blood Cell Count 3.24 X10^6/uL (4.0-5.2); Red Cell Distribution Width 13.8 % (11.6-14.8); White Blood Cell Count 4.2 X10^3/uL (4.5-11.0)
[2021-06-11 14:07] LABS: Alanine Aminotransferase 34 IU/L (<35); Albumin 4.4 g/dL (3.5-5.0); Albumin Globulin Ratio 1.6 (1.0-2.8); Alkaline Phosphatase 77 U/L (38-126); Aspartate Aminotransferase 39 IU/L (14-36); BUN Creatinine Ratio 24.2 (6-22); Bilirubin Total 0.3 mg/dL (0.2-1.3); Blood Urea Nitrogen 15 mg/dL (7-17); Calcium 9.5 mg/dL (8.4-10.2); Carbon Dioxide 26 mmol/L (22-32); Chloride 101 mmol/L (98-107); Estimated Glomerular Filt Rate > 60.0 mL/min (>60); Globulin 2.7 g/dL (1.7-4.1); Glucose 84 mg/dL (70-100); HEMOLYSIS < 15 (0-50); Potassium 4.2 mmol/L (3.4-5.1); Sodium 138 mmol/L (137-145); Total Protein 7.1 g/dL (6.3-8.2)
[2021-06-11 14:24] LABS: Prolactin 141.9 ng/mL (3.0-18.6)
[2021-06-11 15:13] LABS: TSH w/ Reflex to FT4 1.12 uIU/mL (0.47-4.68)
[2021-06-11 18:14] LABS: Hemoglobin A1C% w Est Avg Glu 5.3 % (4.0-6.0)
[2021-06-18 07:43] LABS: Percent Free Testosterone 1.69 % (0.50-2.80); Testosterone Total 17.9 ng/dL (10.0-55.0)
== END ==
PROVIDERS: PCP Family Medicine; Referring Provider Family Medicine; Visit Provider Family Medicine
DX: D51.9 Vitamin B12 deficiency anemia, unspecified (principal); F32.9 Major depressive disorder, single episode, unspecified; O86.12 Endometritis following delivery; O92.70 Unspecified disorders of lactation; R51.9 Headache, unspecified
CPT/HCPCS: 36415; 80053; 83036; 84146; 84402; 84403; 84443; 85025

== ENCOUNTER → 2021-08-02 10:36 | Outpatient (CLI) | payer OTHER, SELFPAY ==
[2021-08-02 21:03] LABS: COVID19 - ORCAS (NP or Nasal) Negative (Negative)
== END ==
PROVIDERS: PCP Family Medicine; Visit Provider Family Medicine
DX: Z20.822 Contact with and (suspected) exposure to COVID-19 (principal)
CPT/HCPCS: U0003

== ENCOUNTER 2021-10-06 00:51 | Emergency (ER) | payer OTHER, SELFPAY ==
[2021-10-06] VITALS (7 sets, daily range): BP systolic 134–148; BP diastolic 73–86; PULSE 68–80; RESP 12–20; TEMP 36.6; O2SAT 98–100; BMI 40.3
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
[2021-10-06] MEDS: MECLIZINE HCL 12.5 MG TABLET 25 MG PO (02:08)
[2021-10-06] MEDS: SODIUM CHLORIDE 0.9% 1,000 ML 1000 ML IV (02:08)
[2021-10-06 02:10] LABS: Blood Urea Nitrogen 17 mg/dL (7-17); Calcium 9.9 mg/dL (8.4-10.2); Carbon Dioxide 29 mmol/L (22-32); Chloride 102 mmol/L (98-107); Estimated Glomerular Filt Rate > 60.0 mL/min (>60); Glucose 140 mg/dL (70-100); HEMOLYSIS 16 (0-50); Potassium 3.5 mmol/L (3.4-5.1); Sodium 136 mmol/L (137-145)
[2021-10-06 02:14] LABS: Add Manual Diff / Slide Review NO; Basophils Absolute Auto 0 /uL (0-100); Basophils Percent Auto 0.4 % (0-2); Eosinophils Absolute Auto 100 /uL (0-450); Eosinophils Percent Auto 1.9 % (2-4); Hematocrit 33.3 % (36-46); Hemoglobin 11.3 g/dL (12.0-16.0); Lymphocytes Absolute Auto 1900 /uL (1100-4500); Lymphocytes Percent Auto 39.7 % (25-40); Mean Corpuscular HGB Conc 33.8 % (30-36); Mean Corpuscular Hemoglobin 31.8 PG (26-34); Monocytes Absolute Auto 300 /uL (0-900); Monocytes Percent Auto 5.8 % (3-14); Neutrophils Absolute Auto 2500 /uL (1500-7000); Neutrophils Percent Auto 52.2 % (50-75); Platelet Count 292 X10^3/uL (150-400); Red Blood Cell Count 3.54 X10^6/uL (4.0-5.2); Red Cell Distribution Width 14.8 % (11.6-14.8); White Blood Cell Count 4.7 X10^3/uL (4.5-11.0)
== END 2021-10-06 04:24 | disposition home or self-care (01) ==
PROVIDERS: Emergency Provider Emergency Medicine; PCP Family Medicine
DX: O90.89 Other complications of the puerperium, not elsewhere classified (principal); R42 Dizziness and giddiness; H73.891 Other specified disorders of tympanic membrane, right ear; Z87.891 Personal history of nicotine dependence
CPT/HCPCS: 36415; 80048; 81003; 81025; 85025; 93005; 93010; 96360; 96361; 99284

== ENCOUNTER → 2021-12-09 10:12 | Outpatient (CLI) | payer OTHER, SELFPAY ==
[2021-12-09 19:34] LABS: HCG Quantitative /Beta subunit 49507 mIU/mL
== END ==
PROVIDERS: PCP Family Medicine; Visit Provider Specialist
DX: O20.9 Hemorrhage in early pregnancy, unspecified (principal)
CPT/HCPCS: 84702

== ENCOUNTER → 2022-01-27 15:17 | Outpatient (CLI) | payer OTHER, SELFPAY ==
[2022-01-27 15:42] LABS: Specimen Label NATERA
[2022-01-27 17:16] LABS: Add Manual Diff / Slide Review NO; Basophils Absolute Auto 0 /uL (0-100); Basophils Percent Auto 0.2 % (0-2); Eosinophils Absolute Auto 0 /uL (0-450); Eosinophils Percent Auto 0.8 % (2-4); Hematocrit 32.5 % (36-46); Hemoglobin 10.9 g/dL (12.0-16.0); Lymphocytes Absolute Auto 1400 /uL (1100-4500); Mean Corpuscular HGB Conc 33.7 % (30-36); Mean Corpuscular Hemoglobin 32.1 PG (26-34); Mean Corpuscular Volume 95.3 fL (80-100); Monocytes Absolute Auto 300 /uL (0-900); Neutrophils Absolute Auto 3500 /uL (1500-7000); Platelet Count 268 X10^3/uL (150-400); Red Blood Cell Count 3.41 X10^6/uL (4.0-5.2); Red Cell Distribution Width 14.6 % (11.6-14.8); White Blood Cell Count 5.2 X10^3/uL (4.5-11.0)
[2022-01-27 17:22] LABS: Appearance Urine UA CLEAR; Bilirubin Urine UA NEGATIVE (NEGATIVE); Color Urine UA YELLOW; Glucose Urine UA NEGATIVE (Negative); Ketones Urine UA 1+ (NEGATIVE); Leukocyte Esterase Urine UA NEGATIVE (NEGATIVE); Nitrite Urine UA NEGATIVE (Negative); Occult Blood Urine UA NEGATIVE (Negative); Protein Urine UA NEGATIVE (Negative); Specific Gravity Urine UA >=1.030 (1.000-1.035); Urobilinogen Urine UA 0.2 E.U./dL (0.2)
[2022-01-27 18:11] LABS: Hepatitis B Surface Antigen NEGATIVE s/c (NEGATIVE); Rubella Antibody IgG 23.3 IU/mL (>15)
[2022-01-27 18:23] LABS: Vitamin B12 288 pg/mL (239-931)
[2022-01-27 18:36] LABS: HIV 1 & 2 Ab/Ag 4th Gen Combo NEGATIVE (NEGATIVE); Hep C Virus Ab w/Reflex Quant NEGATIVE s/c (NEGATIVE)
[2022-01-28 08:28] LABS: RPR Screen Non Reactive (Non Reactive); Varicella IgG Antibody 370 index (Immune >165)
== END ==
PROVIDERS: PCP Family Medicine; Referring Provider Obstetrics & Gynecology; Visit Provider Obstetrics & Gynecology
DX: Z34.81 Encounter for supervision of other normal pregnancy, first trimester (principal); E53.8 Deficiency of other specified B group vitamins
CPT/HCPCS: 36415; 80055; 81003; 82607; 86787; 86803; 86850; 86900; 86901; 87086; 87389

== ENCOUNTER → 2022-02-24 10:04 | Outpatient (CLI) | payer OTHER, SELFPAY | PROVIDERS: PCP Physician Assistant Medical; Visit Provider Physician Assistant Medical | DX: L73.9 Follicular disorder, unspecified (principal) | CPT/HCPCS: 87070; 87075; 87077; 87147; 87186; 87205 ==

== ENCOUNTER 2022-03-05 15:50 | Emergency (ER) | payer OTHER, SELFPAY | END 2022-03-05 16:14 | disposition left against medical advice (07) | PROVIDERS: Emergency Provider Emergency Medicine; PCP Physician Assistant Medical ==

== ENCOUNTER → 2022-03-11 15:39 | Outpatient (CLI) | payer OTHER, SELFPAY ==
--- NOTE | 2022-03-11 15:40 | DI.US.S_ITS ---
PROCEDURE: US ABDOMEN LIMITED INDICATIONS: 36-year-old patient with palpable epigastric mass. Evaluate for ventral hernia or diastasis rectus TECHNIQUE: Real-time scanning was performed of the area of concern COMPARISON: None. FINDINGS: Anterior abdominal wall appears intact without evidence of ventral hernia or diastasis rectus. IMPRESSION: 1. Unremarkable ultrasound of the anterior abdominal wall Approved by: Jeremy Morrison M.D. on 03/11/2022 at 17:55
--- NOTE | 2022-03-11 15:40 | DI.US.S_ITS ---
PROCEDURE: US OB >= 14 WEEKS FETUS INDICATIONS: 20 wk anatomy OUTSIDE/PRIOR DATING DATA: Last menstrual period (LMP): 10/23/2021. LMP-based estimated date of delivery (TERRA): 07/30/2022. First dating scan (date and location): 12/23/2021. Estimated date of delivery (TERRA) from first dating scan: 08/02/2022. TECHNIQUE: Real-time scanning was performed of the fetus, with image documentation and biometric measurements. Endovaginal scanning: None COMPARISON: [facility], US, OB >= 14 WEEKS FETUS, 03/11/2022, 11:03. FINDINGS: General: A single living intrauterine gestation is present. Presentation: Variable. Placenta: Placental position is anterior , without previa. Amniotic fluid index: 13.8 cm, normal range is 5-24 cm. heart rate: 139 beats per minute. Maternal cervical canal: 5.4 cm long. Normal lower limit is 2.5 cm. biometrics: Biparietal diameter: 4.6 cm, 20 week 0 day Head circumference: 17.5 cm, 20 week 0 day Abdominal circumference: 14.9 cm, 20 week 2 day Femur length: 3.2 cm, 20 week 0 day Clinically estimated gestational age: 19 week 3 day Composite gestational age from present scan: 20 week 1 day Estimated weight and percentile: 332 g, 68th percentile Anatomic survey: Neuro: Ventricles are non-dilated at less than 10 mm. Cisterna magna is normal at 3-11 mm. Cerebellum is normal in size and morphology. Nuchal skin fold: Normal at less than 6 mm between 14-21 weeks gestational age. Face: Nose and lips, facial profile are normal. Spine: No evidence for spina bifida. Heart: 4-chambered heart is present, with normal ventricular outflow tracts. Diaphragm: Diaphragm is intact. Stomach: Left-sided stomach is present. Kidneys: No hydronephrosis. Normal is less than 5 mm in 2nd trimester, less than 7 mm in 3rd trimester. Cord: 3-vessel cord has orthotopic insertion. Bladder: Normal in size. Extremities: All 4 extremities identified. IMPRESSION: Single live intrauterine consistent with 21 week 1 day gestation by current ultrasound. Normal anatomy. Approved by: Jeremy Morrison M.D. on 03/11/2022 at 17:52
== END ==
PROVIDERS: PCP Physician Assistant Medical; Referring Provider Physician Assistant; Visit Provider Physician Assistant
DX: O99.891 Other specified diseases and conditions complicating pregnancy; M62.08 Separation of muscle (nontraumatic), other site; O99.612 Diseases of the digestive system complicating pregnancy, second trimester; Z36.89 Encounter for other specified antenatal screening; K52.9 Noninfective gastroenteritis and colitis, unspecified; Z3A.21 21 weeks gestation of pregnancy
CPT/HCPCS: 76705; 76811

== ENCOUNTER → 2022-05-25 13:55 | Outpatient (CLI) | payer OTHER, SELFPAY ==
[2022-05-25 19:31] LABS: HEMOLYSIS < 15 (0-50); Iron 63 ug/dL (37-170)
[2022-05-25 19:45] LABS: Percent Iron Saturation 11 % (15-50); Total Iron Binding Capacity 550 ug/dL (265-497); Transferrin 429 mg/dL (206-381)
[2022-05-25 20:44] LABS: Folate > 20.0 ng/mL (2.76-20.0); Vitamin B12 218 pg/mL (239-931)
== END ==
PROVIDERS: PCP Physician Assistant Medical; Visit Provider Obstetrics & Gynecology
DX: O99.013 Anemia complicating pregnancy, third trimester (principal)
CPT/HCPCS: 82607; 82746; 83540; 83550

== ENCOUNTER → 2022-07-12 13:58 | Outpatient (CLI) | payer OTHER, SELFPAY ==
[2022-07-12 18:53] LABS: Hematocrit 26.6 % (36-46); Hemoglobin 8.9 g/dL (12.0-16.0); Mean Corpuscular HGB Conc 33.2 % (30-36); Mean Corpuscular Hemoglobin 30.1 PG (26-34); Mean Corpuscular Volume 90.6 fL (80-100); Platelet Count 258 X10^3/uL (150-400); Red Blood Cell Count 2.94 X10^6/uL (4.0-5.2); Red Cell Distribution Width 14.7 % (11.6-14.8); White Blood Cell Count 7.1 X10^3/uL (4.5-11.0)
[2022-07-12 19:35] LABS: Ferritin 6 ng/mL (6-137)
[2022-07-12 20:07] LABS: Folate > 20.0 ng/mL (2.76-20.0); Vitamin B12 321 pg/mL (239-931)
== END ==
PROVIDERS: PCP Family Medicine; Visit Provider Obstetrics & Gynecology
DX: O99.013 Anemia complicating pregnancy, third trimester (principal)
CPT/HCPCS: 82607; 82728; 82746; 85027

== ENCOUNTER → 2022-08-08 11:00 | Outpatient (CLI) | payer OTHER, SELFPAY ==
[2022-08-08 20:12] LABS: Add Manual Diff / Slide Review NO; Basophils Absolute Auto 0 /uL (0-100); Basophils Percent Auto 0.8 % (0-2); Eosinophils Absolute Auto 200 /uL (0-450); Eosinophils Percent Auto 2.7 % (2-4); Hematocrit 30.2 % (36-46); Hemoglobin 9.9 g/dL (12.0-16.0); Lymphocytes Absolute Auto 2100 /uL (1100-4500); Lymphocytes Percent Auto 36.3 % (25-40); Mean Corpuscular HGB Conc 32.7 % (30-36); Mean Corpuscular Hemoglobin 29.3 PG (26-34); Mean Corpuscular Volume 89.7 fL (80-100); Monocytes Absolute Auto 300 /uL (0-900); Monocytes Percent Auto 4.8 % (3-14); Neutrophils Absolute Auto 3200 /uL (1500-7000); Neutrophils Percent Auto 55.4 % (50-75); Platelet Count 383 X10^3/uL (150-400); Red Blood Cell Count 3.37 X10^6/uL (4.0-5.2); Red Cell Distribution Width 15.6 % (11.6-14.8); White Blood Cell Count 5.7 X10^3/uL (4.5-11.0)
== END ==
PROVIDERS: PCP Family Medicine; Visit Provider Family Medicine
DX: R30.0 Dysuria (principal); N39.0 Urinary tract infection, site not specified
CPT/HCPCS: 85025; 87086

== ENCOUNTER → 2022-10-10 14:29 | Outpatient (CLI) | payer OTHER, SELFPAY ==
[2022-10-10 19:56] LABS: Add Manual Diff / Slide Review NO; Basophils Absolute Auto 0 /uL (0-100); Basophils Percent Auto 0.5 % (0-2); Eosinophils Absolute Auto 100 /uL (0-450); Eosinophils Percent Auto 1.8 % (2-4); Hemoglobin 10.6 g/dL (12.0-16.0); Lymphocytes Absolute Auto 1500 /uL (1100-4500); Lymphocytes Percent Auto 38.6 % (25-40); Mean Corpuscular HGB Conc 33.1 % (30-36); Mean Corpuscular Hemoglobin 30.8 PG (26-34); Mean Corpuscular Volume 92.9 fL (80-100); Monocytes Absolute Auto 200 /uL (0-900); Monocytes Percent Auto 5.4 % (3-14); Neutrophils Absolute Auto 2100 /uL (1500-7000); Neutrophils Percent Auto 53.7 % (50-75); Platelet Count 255 X10^3/uL (150-400); Red Blood Cell Count 3.45 X10^6/uL (4.0-5.2); White Blood Cell Count 3.9 X10^3/uL (4.5-11.0)
[2022-10-10 20:05] LABS: HEMOLYSIS < 15 (0-50); Iron 81 ug/dL (37-170)
[2022-10-10 20:14] LABS: Alanine Aminotransferase 26 IU/L (<35); Albumin 4.1 g/dL (3.5-5.0); Albumin Globulin Ratio 1.6 (1.0-2.8); Alkaline Phosphatase 62 U/L (38-126); Aspartate Aminotransferase 27 IU/L (14-36); BUN Creatinine Ratio 13.6 (6-22); Bilirubin Total 0.5 mg/dL (0.2-1.3); Blood Urea Nitrogen 8 mg/dL (7-17); C-Reactive Protein Quant 0.8 mg/dL (<1.0); Calcium 8.8 mg/dL (8.4-10.2); Carbon Dioxide 23 mmol/L (22-32); Chloride 104 mmol/L (98-107); Estimated Glomerular Filt Rate > 60 mL/min (>60); Globulin 2.6 g/dL (1.7-4.1); Glucose 146 mg/dL (70-100); HEMOLYSIS < 15 (0-50); Potassium 3.8 mmol/L (3.4-5.1); Sodium 138 mmol/L (137-145); Total Protein 6.7 g/dL (6.3-8.2)
[2022-10-10 20:18] LABS: Erythrocyte Sedimentation Rate 33 MM/HR (0-20); Percent Iron Saturation 21 % (15-50); Total Iron Binding Capacity 394 ug/dL (265-497); Transferrin 293 mg/dL (206-381)
[2022-10-10 20:37] LABS: Clostridium Difficile Tox PCR Positive for C. diff (Negative)
[2022-10-10 20:55] LABS: Vitamin B12 606 pg/mL (239-931)
[2022-10-10 22:10] LABS: Vitamin D 25 Hydroxy (D3) 30.9 ng/mL (30.0-100.0)
[2022-10-13 17:11] LABS: Deamidated Gliadin Ab IgA 8 units (0-19); Deamidated Gliadin Ab IgG 3 units (0-19); Immunoglobulin A,Qn 93 mg/dL (87-352); t-Transglutaminase IgA <2 U/mL (0-3)
[2022-10-17 10:28] LABS: C difficie Toxins A and B, EIA Negative
== END ==
PROVIDERS: Family Medicine; PCP Family Medicine; Visit Provider Family Medicine
DX: K52.9 Noninfective gastroenteritis and colitis, unspecified (principal); K92.1 Melena; D51.9 Vitamin B12 deficiency anemia, unspecified; K90.9 Intestinal malabsorption, unspecified
CPT/HCPCS: 80053; 82306; 82607; 82784; 83516; 83540; 83550; 84443; 85025; 85651; 86140; 87045; 87177; 87324; 87493; 87899

== ENCOUNTER → 2023-02-23 13:22 | Outpatient (CLI) | payer OTHER, SELFPAY ==
[2023-02-23 20:20] LABS: HEMOLYSIS < 15 (0-50); Iron 75 ug/dL (37-170)
[2023-02-23 20:23] LABS: Alanine Aminotransferase 24 IU/L (<35); Albumin 4.4 g/dL (3.5-5.0); Albumin Globulin Ratio 1.3 (1.0-2.8); Alkaline Phosphatase 63 U/L (38-126); Aspartate Aminotransferase 51 IU/L (14-36); BUN Creatinine Ratio 14.5 (6-22); Bilirubin Total 0.6 mg/dL (0.2-1.3); Blood Urea Nitrogen 11 mg/dL (7-17); Calcium 9.5 mg/dL (8.4-10.2); Carbon Dioxide 27 mmol/L (22-32); Chloride 101 mmol/L (98-107); Estimated Glomerular Filt Rate > 60 mL/min (>60); Globulin 3.3 g/dL (1.7-4.1); Glucose 112 mg/dL (70-100); HEMOLYSIS < 15 (0-50); Potassium 4.1 mmol/L (3.4-5.1); Sodium 137 mmol/L (137-145); Total Protein 7.7 g/dL (6.3-8.2)
[2023-02-23 20:26] LABS: Add Manual Diff / Slide Review NO; Basophils Absolute Auto 0 /uL (0-100); Basophils Percent Auto 0.3 % (0-2); Eosinophils Absolute Auto 100 /uL (0-450); Eosinophils Percent Auto 1.7 % (2-4); Hematocrit 36.1 % (36-46); Hemoglobin 12.2 g/dL (12.0-16.0); Lymphocytes Absolute Auto 1600 /uL (1100-4500); Lymphocytes Percent Auto 40.9 % (25-40); Mean Corpuscular HGB Conc 33.6 % (30-36); Mean Corpuscular Hemoglobin 31.7 PG (26-34); Mean Corpuscular Volume 94.1 fL (80-100); Monocytes Absolute Auto 200 /uL (0-900); Monocytes Percent Auto 5.7 % (3-14); Neutrophils Absolute Auto 2100 /uL (1500-7000); Neutrophils Percent Auto 51.4 % (50-75); Platelet Count 286 X10^3/uL (150-400); Red Blood Cell Count 3.84 X10^6/uL (4.0-5.2); Red Cell Distribution Width 15.8 % (11.6-14.8)
[2023-02-23 20:30] LABS: Percent Iron Saturation 16 % (15-50); Total Iron Binding Capacity 476 ug/dL (265-497); Transferrin 350 mg/dL (206-381)
[2023-02-23 21:50] LABS: Ferritin 6 ng/mL (6-137)
[2023-02-23 22:04] LABS: Vitamin B12 Reflex MMA if <400 318 pg/mL (239-931)
[2023-03-02 01:09] LABS: Methylmalonic Acid,Serum 260 nmol/L (0-378)
== END ==
PROVIDERS: PCP Family Medicine; Visit Provider Family Medicine
DX: D64.9 Anemia, unspecified (principal); K92.1 Melena; N92.0 Excessive and frequent menstruation with regular cycle; D51.9 Vitamin B12 deficiency anemia, unspecified
CPT/HCPCS: 80053; 82607; 82728; 83540; 83550; 83921; 85025

== ENCOUNTER → 2023-03-06 09:51 | Outpatient (CLI) | payer OTHER, SELFPAY ==
[2023-03-08 17:13] LABS: Fecal Immunochemical Test Negative (Negative)
== END ==
PROVIDERS: PCP Family Medicine; Visit Provider Family Medicine
DX: K92.1 Melena (principal)
CPT/HCPCS: 82274

== ENCOUNTER → 2023-03-13 11:48 | Outpatient (CLI) | payer OTHER, SELFPAY ==
--- NOTE | 2023-03-13 11:49 | DI.MRI.S_ITS ---
PROCEDURE: MR PELVIS WO/W CON INDICATIONS: cyclic pelvic pain and bleeding. TECHNIQUE: Coronal HASTE, sagittal breath-hold T2 FSE; axial T1 FSE with and without fat saturation through the pelvis. Optional long- and short-axis uterine nonbreath-hold T2 FSE through the uterus. Sagittal or axial dynamic VIBE during administration of contrast. Post-contrast axial or coronal VIBE/2-D FLASH with fat saturation from the iliac crests to the symphysis. Optional diffusion weighted imaging and ADC may be performed. [facility], 05/26/[facility]21, 14:09. FINDINGS: Image quality: Excellent. Uterus: Uterus is normal in size. Endometrium is normal in thickness. Junctional zone is measures 13 millimeters. No internal T2 hyperintense cystic change noted. Bartholin duct cystic lesion along the right side measuring 1.5 x 1.1 centimeter (series 4, image 28). scar present. Adnexa: Both ovaries are normal in size, without suspicious cystic or solid lesions. No T1 hyperintense lesions within the ovaries or pelvis to suggest endometriosis. Urinary system: Bladder wall is normal in thickness. Distal ureters are non distended. Urethra appears normal in morphology. Nodes and vessels: No pelvic or inguinal adenopathy by size criteria. Iliac vessels are normal in size. Bowel and peritoneum: No pathologic free pelvic fluid. Inferior colon and small bowel loops are normal in caliber. Soft tissues: No inguinal hernias. No findings of pelvic floor incompetence in the absence of provocation. Bones: Marrow demonstrates normal overall signal. IMPRESSION: Indistinct junctional zone measuring up to 13 millimeters. Diffuse adenomyosis not excluded. No evidence of endometriosis of the pelvis or ovaries. Simple appearing Bartholin duct cyst measuring 1.5 x 1.1 centimeter. Dictated by: Graeme Meek M.D. on 03/13/2023 at 14:15 Approved by: Graeme Meek M.D. on 03/13/2023 at 14:19
== END ==
PROVIDERS: PCP Family Medicine; Referring Provider Family Medicine; Visit Provider Family Medicine
DX: N75.0 Cyst of Bartholin's gland (principal); N94.6 Dysmenorrhea, unspecified; N92.0 Excessive and frequent menstruation with regular cycle; R93.5 Abnormal findings on diagnostic imaging of other abdominal regions, including retroperitoneum; K92.1 Melena
CPT/HCPCS: 72197; A9579

== ENCOUNTER → 2023-08-17 11:50 | Outpatient (CLI) | payer OTHER, SELFPAY ==
[2023-08-17 18:54] LABS: Add Manual Diff / Slide Review NO; Basophils Absolute Auto 0 /uL (0-100); Basophils Percent Auto 0.3 % (0-2); Eosinophils Absolute Auto 100 /uL (0-450); Eosinophils Percent Auto 1.5 % (2-4); Hematocrit 36.6 % (36-46); Hemoglobin 12.5 g/dL (12.0-16.0); Lymphocytes Absolute Auto 1500 /uL (1100-4500); Lymphocytes Percent Auto 37.1 % (25-40); Mean Corpuscular HGB Conc 34.3 % (30-36); Mean Corpuscular Hemoglobin 33.5 PG (26-34); Mean Corpuscular Volume 97.7 fL (80-100); Monocytes Absolute Auto 300 /uL (0-900); Monocytes Percent Auto 6.5 % (3-14); Neutrophils Absolute Auto 2300 /uL (1500-7000); Neutrophils Percent Auto 54.6 % (50-75); Platelet Count 254 X10^3/uL (150-400); Red Blood Cell Count 3.74 X10^6/uL (4.0-5.2); Red Cell Distribution Width 13.3 % (11.6-14.8); White Blood Cell Count 4.2 X10^3/uL (4.5-11.0)
[2023-08-17 18:59] LABS: Iron 84 ug/dL (37-170)
[2023-08-17 19:02] LABS: Alanine Aminotransferase 31 IU/L (<35); Albumin 4.3 g/dL (3.5-5.0); Albumin Globulin Ratio 1.5 (1.0-2.8); Alkaline Phosphatase 54 U/L (38-126); Aspartate Aminotransferase 35 IU/L (14-36); BUN Creatinine Ratio 23.5 (6-22); Bilirubin Total 0.7 mg/dL (0.2-1.3); Blood Urea Nitrogen 12 mg/dL (7-17); Calcium 9.9 mg/dL (8.4-10.2); Carbon Dioxide 29 mmol/L (22-32); Chloride 101 mmol/L (98-107); Estimated Glomerular Filt Rate > 60 mL/min (>60); Globulin 2.9 g/dL (1.7-4.1); Glucose 86 mg/dL (70-100); HEMOLYSIS 34 (0-50); HEMOLYSIS 64 (0-50); Potassium 4.5 mmol/L (3.4-5.1); Sodium 136 mmol/L (137-145); Total Protein 7.2 g/dL (6.3-8.2)
[2023-08-17 19:10] LABS: Percent Iron Saturation 27 % (15-50); Total Iron Binding Capacity 308 ug/dL (265-497); Transferrin 285 mg/dL (206-381)
[2023-08-17 19:36] LABS: Ferritin 14 ng/mL (6-137)
[2023-08-17 19:51] LABS: Vitamin B12 Reflex MMA if <400 703 pg/mL (239-931)
== END ==
PROVIDERS: PCP Family Medicine; Visit Provider Family Medicine
DX: R74.01 Elevation of levels of liver transaminase levels (principal); D51.0 Vitamin B12 deficiency anemia due to intrinsic factor deficiency; E61.1 Iron deficiency
CPT/HCPCS: 80053; 82607; 82728; 83540; 83550; 85025

== ENCOUNTER 2023-08-21 21:52 | Emergency (ER) | payer OTHER, SELFPAY ==
[2023-08-21 21:55] VITALS: BP 146/80; PULSE 88; RESP 18; TEMP 36.3; O2SAT 100; BMI 36.6
[2023-08-22] VITALS (11 sets, daily range): BP systolic 136–151; BP diastolic 76–96; PULSE 71–87; RESP 14–24; O2SAT 97–100
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
[2023-08-22 01:43] LABS: Add Manual Diff / Slide Review NO; Basophils Absolute Auto 0 /uL (0-100); Basophils Percent Auto 0.4 % (0-2); Eosinophils Absolute Auto 100 /uL (0-450); Eosinophils Percent Auto 1.5 % (2-4); Hemoglobin 12.8 g/dL (12.0-16.0); Lymphocytes Absolute Auto 2000 /uL (1100-4500); Lymphocytes Percent Auto 37.2 % (25-40); Mean Corpuscular HGB Conc 33.8 % (30-36); Mean Corpuscular Hemoglobin 32.9 PG (26-34); Mean Corpuscular Volume 97.3 fL (80-100); Monocytes Absolute Auto 300 /uL (0-900); Monocytes Percent Auto 5.9 % (3-14); Neutrophils Absolute Auto 3000 /uL (1500-7000); Platelet Count 263 X10^3/uL (150-400); Red Blood Cell Count 3.91 X10^6/uL (4.0-5.2); Red Cell Distribution Width 13.8 % (11.6-14.8); White Blood Cell Count 5.4 X10^3/uL (4.5-11.0)
[2023-08-22 01:44] LABS: Alanine Aminotransferase 29 IU/L (<35); Albumin 4.6 g/dL (3.5-5.0); Albumin Globulin Ratio 1.4 (1.0-2.8); Alkaline Phosphatase 68 U/L (38-126); Bilirubin Total 0.9 mg/dL (0.2-1.3); Blood Urea Nitrogen 12 mg/dL (7-17); Calcium 10.2 mg/dL (8.4-10.2); Carbon Dioxide 26 mmol/L (22-32); Chloride 101 mmol/L (98-107); Estimated Glomerular Filt Rate > 60 mL/min (>60); Globulin 3.3 g/dL (1.7-4.1); Glucose 99 mg/dL (70-100); HEMOLYSIS < 15 (0-50); Lipase 113 U/L (23-300); Potassium 3.7 mmol/L (3.4-5.1); Sodium 136 mmol/L (137-145); Total Protein 7.9 g/dL (6.3-8.2)
--- NOTE | 2023-08-22 02:45 | DI.CT.S_ITS ---
PROCEDURE: CT ABDOMEN PELVIS W CON INDICATIONS: RLQ abd pain TECHNIQUE: After the administration of intravenous contrast, axial sections acquired from the lung bases to the pubic symphysis. Coronal and sagittal reformats were performed. For radiation dose reduction, the following was used: automated exposure control, adjustment of mA and/or kV according to patient size. COMPARISON: MR, MR PELVIS WO/W CON, 03/13/2023, 12:08. FINDINGS: Image quality: Diagnostic. Lower Chest: No significant findings. ABDOMEN: Liver: No solid mass. Gallbladder: No radiopaque gallstones or wall thickening. Biliary ducts: No biliary dilation. Pancreas: No ductal dilation. Spleen: Size is within normal limits. Adrenal Glands: No adrenal nodules. Kidneys and Ureters: No hydronephrosis. No solid mass. No complex renal cystic lesion which requires follow up. Stomach and Bowel: Normal colonic caliber, without significant wall thickening. Normal appendix. Peritoneum: No abnormal intraperitoneal fluid. No free air. Ventral Wall: No hernia. Abdominal Nodes: No retroperitoneal or mesenteric adenopathy by size criteria. Vessels: Aorta and inferior vena cava are normal in size. PELVIS: Pelvic Organs: Unremarkable. Bladder: Bladder wall may be mildly thickened but bladder is contracted. Pelvic Nodes: No enlarged lymph nodes. Miscellaneous: No inguinal hernias are seen. Bones: No aggressive osseous abnormality. IMPRESSION: 1. Normal appendix. A cause for right lower quadrant pain is not identified. 2. Bladder wall may be mildly thickened which could be caused by inadequate distention. Please correlate with urinalysis. No significant discrepancy with the maintenance mechanic 2nd shift radiology preliminary report. Dictated by: Charisse Landry M.D. on 08/22/2023 at 8:19 Approved by: Charisse Landry M.D. on 08/22/2023 at 8:24
[2023-08-22] MEDS: SODIUM CHLORIDE 0.9% 1,000 ML 1000 ML IV (02:49)
[2023-08-25 14:50] LABS: Aspartate Aminotransferase 34 IU/L (14-36)
== END 2023-08-22 04:35 | disposition home or self-care (01) ==
PROVIDERS: Emergency Provider Emergency Medicine; PCP Family Medicine
DX: R10.31 Right lower quadrant pain (principal)
CPT/HCPCS: 36415; 74177; 80053; 81003; 83690; 85025; 99284; Q9967

== ENCOUNTER → 2023-09-12 13:32 | Outpatient (CLI) | payer OTHER, SELFPAY ==
[2023-09-12 20:09] LABS: C-Reactive Protein Quant 1.1 mg/dL (<1.0)
[2023-09-12 20:31] LABS: Erythrocyte Sedimentation Rate 29 MM/HR (0-20)
[2023-09-14 23:38] LABS: IgA 96 mg/dL (87-352); t-Transglutaminase IgA <2 U/mL (0-3)
== END ==
PROVIDERS: PCP Family Medicine; Visit Provider Internal Medicine Gastroenterology
DX: R10.30 Lower abdominal pain, unspecified (principal); R19.4 Change in bowel habit; K62.5 Hemorrhage of anus and rectum
CPT/HCPCS: 82784; 82785; 83516; 85651; 86003; 86008; 86140

== ENCOUNTER → 2023-09-13 13:37 | Outpatient (CLI) | payer OTHER, SELFPAY ==
[2023-09-18 16:39] LABS: Calprotectin, Stool 28 ug/g (0-120)
== END ==
LOC: LAB 09-26 13:37
PROVIDERS: PCP Family Medicine; Referring Provider Internal Medicine Gastroenterology; Visit Provider Internal Medicine Gastroenterology
DX: R10.30 Lower abdominal pain, unspecified (principal); R19.4 Change in bowel habit; K62.5 Hemorrhage of anus and rectum
CPT/HCPCS: 83993; 87329

== ENCOUNTER → 2023-09-26 13:42 | Outpatient (CLI) | payer OTHER, SELFPAY ==
[2023-09-26 19:38] LABS: Vitamin D 25 Hydroxy (D3) 25.7 ng/mL (30.0-100.0)
[2023-09-26 19:50] LABS: TSH w/ Reflex to FT4 1.07 uIU/mL (0.47-4.68)
== END ==
PROVIDERS: PCP Family Medicine; Visit Provider Family Medicine
DX: L65.9 Nonscarring hair loss, unspecified (principal)
CPT/HCPCS: 82306; 84443

== ENCOUNTER 2024-01-05 21:15 | Emergency (ER) | payer OTHER, SELFPAY ==
[2024-01-05 21:21] VITALS: BP 136/74; PULSE 64; RESP 16; TEMP 37.1; O2SAT 99; BMI 36.8
[2024-01-05 21:51] LABS: Add Manual Diff / Slide Review NO; Basophils Absolute Auto 0 /uL (0-100); Basophils Percent Auto 0.5 % (0-2); Eosinophils Absolute Auto 100 /uL (0-450); Eosinophils Percent Auto 1.4 % (2-4); Hematocrit 37.5 % (36-46); Hemoglobin 12.9 g/dL (12.0-16.0); Lymphocytes Absolute Auto 2500 /uL (1100-4500); Mean Corpuscular HGB Conc 34.3 % (30-36); Mean Corpuscular Hemoglobin 33.3 PG (26-34); Mean Corpuscular Volume 97.2 fL (80-100); Monocytes Absolute Auto 300 /uL (0-900); Monocytes Percent Auto 4.7 % (3-14); Neutrophils Absolute Auto 3100 /uL (1500-7000); Neutrophils Percent Auto 51.4 % (50-75); Platelet Count 265 X10^3/uL (150-400); Red Blood Cell Count 3.86 X10^6/uL (4.0-5.2); Red Cell Distribution Width 13.6 % (11.6-14.8)
[2024-01-05 22:02] LABS: Alanine Aminotransferase 25 IU/L (<35); Albumin 4.9 g/dL (3.5-5.0); Albumin Globulin Ratio 1.9 (1.0-2.8); Alkaline Phosphatase 46 U/L (38-126); Aspartate Aminotransferase 25 IU/L (14-36); BUN Creatinine Ratio 16.1 (6-22); Bilirubin Total 0.4 mg/dL (0.2-1.3); Blood Urea Nitrogen 10 mg/dL (7-17); Calcium 9.4 mg/dL (8.4-10.2); Carbon Dioxide 27 mmol/L (22-32); Chloride 105 mmol/L (98-107); Estimated Glomerular Filt Rate > 60 mL/min (>60); Globulin 2.6 g/dL (1.7-4.1); Glucose 113 mg/dL (70-100); HEMOLYSIS < 15 (0-50); Lipase 149 U/L (23-300); Sodium 140 mmol/L (137-145); Total Protein 7.5 g/dL (6.3-8.2)
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
--- NOTE | 2024-01-06 00:41 | DI.CT.S_ITS ---
PROCEDURE: CT ANGIO ABD/PEL GI BLEED INDICATIONS: bloody stools, abd pain TECHNIQUE: After the administration of intravenous contrast, 2.5 mm thick sections acquired from the diaphragm to the symphysis. 10 mm maximum-intensity projection (MIP) reformats were then acquired. For radiation dose reduction, the following was used: automated exposure control. COMPARISON: None. FINDINGS: Image Quality: Diagnostic. Abdominal aorta: No aortic aneurysm or evidence of acute aortic syndrome. Mesenteric arteries: Patent without hemodynamically significant stenosis. Renal arteries: Patent without hemodynamically significant stenosis. OTHER: Lower Chest: No significant findings. Liver: Hypodense focus in the left lobe of the liver, (12/37); and right lobe inferiorly, (12/44). Unchanged and suspect small cysts. Gallbladder: No radiopaque gallstones or wall thickening. Biliary ducts: No biliary dilation. Pancreas: No ductal dilation. Spleen: Size is within normal limits. Adrenal Glands: No adrenal nodules. Kidneys and Ureters: No hydronephrosis. No solid mass. No complex renal cystic lesion which requires follow up. Stomach and Bowel: Normal colonic caliber, without significant wall thickening. A few colonic diverticuli most pronounced near the splenic flexure. Normal appendix Peritoneum: No abnormal intraperitoneal fluid. No free air. Ventral Wall: No hernia. Abdominal Nodes: No retroperitoneal or mesenteric adenopathy by size criteria. Vessels: Aorta and inferior vena cava are normal in size. PELVIS: Pelvic Organs: Absent uterus. Bladder: No stone. Pelvic Nodes: No enlarged lymph nodes. Miscellaneous: No inguinal hernias are seen. Bones: No aggressive osseous abnormality. IMPRESSION: No acute abnormality identified. No acute inflammatory process. No free fluid. No mesenteric filling defect. No bowel obstruction. No appendicitis. Dictated by: Bunny Rodriguez M.D. on 01/06/2024 at 1:46 Approved by: Bunny Rodriguez M.D. on 01/06/2024 at 1:56
[2024-01-06 03:24] LABS: Hemoglobin 12.3 g/dL (12.0-16.0)
[2024-01-06 04:09] VITALS: BP 137/72; PULSE 75; RESP 14; O2SAT 97
== END 2024-01-06 04:14 | disposition home or self-care (01) ==
PROVIDERS: Emergency Provider Emergency Medicine; PCP Family Medicine
DX: K92.2 Gastrointestinal hemorrhage, unspecified (principal)
CPT/HCPCS: 36415; 74174; 80053; 81003; 83690; 85014; 85018; 85025; 86850; 86900; 86901; 99284; Q9967

== ENCOUNTER → 2024-02-05 11:53 | Outpatient (CLI) | payer OTHER, SELFPAY ==
[2024-02-05 19:46] LABS: HEMOLYSIS < 15 (0-50); Hematocrit 38.2 % (36-46); Hemoglobin 12.9 g/dL (12.0-16.0); Iron 159 ug/dL (37-170); Mean Corpuscular HGB Conc 33.9 % (30-36); Mean Corpuscular Hemoglobin 33.4 PG (26-34); Mean Corpuscular Volume 98.6 fL (80-100); Platelet Count 243 X10^3/uL (150-400); Red Blood Cell Count 3.87 X10^6/uL (4.0-5.2); Red Cell Distribution Width 13.3 % (11.6-14.8); White Blood Cell Count 3.5 X10^3/uL (4.5-11.0)
[2024-02-05 19:50] LABS: C-Reactive Protein Quant < 0.5 mg/dL (<1.0)
[2024-02-05 19:59] LABS: Percent Iron Saturation 53 % (15-50); Total Iron Binding Capacity 302 ug/dL (265-497); Transferrin 238 mg/dL (206-381)
[2024-02-05 20:18] LABS: TSH w/ Reflex to FT4 0.78 uIU/mL (0.47-4.68)
[2024-02-05 20:24] LABS: Ferritin 14 ng/mL (6-137)
[2024-02-08 19:09] LABS: Calprotectin, Stool 31 ug/g (0-120)
== END ==
PROVIDERS: PCP Family Medicine; Visit Provider Nurse Practitioner Family
DX: R19.7 Diarrhea, unspecified (principal); K62.5 Hemorrhage of anus and rectum
CPT/HCPCS: 82728; 83540; 83550; 83993; 84443; 85027; 86140; 87045; 87177; 87493

== ENCOUNTER → 2024-07-22 13:58 | Outpatient (CLI) | payer OTHER, SELFPAY ==
[2024-07-22 18:42] LABS: Add Manual Diff / Slide Review NO; Basophils Absolute Auto 0 /uL (0-100); Basophils Percent Auto 0.2 % (0-2); Eosinophils Absolute Auto 100 /uL (0-450); Eosinophils Percent Auto 1.4 % (2-4); Hematocrit 38.3 % (36-46); Hemoglobin 13.1 g/dL (12.0-16.0); Lymphocytes Absolute Auto 1400 /uL (1100-4500); Lymphocytes Percent Auto 27.9 % (25-40); Mean Corpuscular HGB Conc 34.1 % (30-36); Mean Corpuscular Hemoglobin 33.9 PG (26-34); Mean Corpuscular Volume 99.4 fL (80-100); Monocytes Absolute Auto 300 /uL (0-900); Monocytes Percent Auto 6.1 % (3-14); Neutrophils Absolute Auto 3300 /uL (1500-7000); Neutrophils Percent Auto 64.4 % (50-75); Platelet Count 254 X10^3/uL (150-400); Red Blood Cell Count 3.85 X10^6/uL (4.0-5.2); Red Cell Distribution Width 13.4 % (11.6-14.8); White Blood Cell Count 5.1 X10^3/uL (4.5-11.0)
== END ==
PROVIDERS: PCP Family Medicine; Visit Provider Nurse Practitioner Family
DX: K62.5 Hemorrhage of anus and rectum (principal)
CPT/HCPCS: 85025

== ENCOUNTER → 2024-08-15 13:02 | Outpatient (CLI) | payer OTHER, SELFPAY ==
[2024-08-15 18:48] LABS: Hematocrit 39.6 % (36-46); Hemoglobin 13.3 g/dL (12.0-16.0); Mean Corpuscular HGB Conc 33.6 % (30-36); Mean Corpuscular Hemoglobin 33.5 PG (26-34); Mean Corpuscular Volume 99.6 fL (80-100); Platelet Count 249 X10^3/uL (150-400); Red Blood Cell Count 3.98 X10^6/uL (4.0-5.2); Red Cell Distribution Width 13.1 % (11.6-14.8); White Blood Cell Count 4.2 X10^3/uL (4.5-11.0)
[2024-08-15 19:00] LABS: HEMOLYSIS < 15 (0-50); Iron 150 ug/dL (37-170)
[2024-08-15 19:06] LABS: C-Reactive Protein Quant < 0.5 mg/dL (<1.0)
[2024-08-15 19:11] LABS: Percent Iron Saturation 57 % (15-50); Total Iron Binding Capacity 261 ug/dL (265-497); Transferrin 242 mg/dL (206-381)
[2024-08-15 19:35] LABS: TSH w/ Reflex to FT4 0.34 uIU/mL (0.47-4.68)
[2024-08-15 19:39] LABS: Ferritin 25 ng/mL (6-137)
[2024-08-15 20:23] LABS: Free T4, Direct Thyroxine 0.86 ng/dL (0.78-2.19)
== END ==
PROVIDERS: Nurse Practitioner Family; PCP Family Medicine
DX: R19.7 Diarrhea, unspecified (principal); K62.5 Hemorrhage of anus and rectum
CPT/HCPCS: 82728; 83540; 83550; 83993; 84439; 84443; 85027; 86140; 87045; 87177; 87324

== ENCOUNTER 2025-01-26 08:57 | Emergency (ER) | payer OTHER, SELFPAY ==
[2025-01-26] VITALS (8 sets, daily range): BP systolic 141; BP diastolic 62–83; PULSE 78–118; RESP 15–23; TEMP 36.7; O2SAT 98–99; BMI 40.3
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
--- NOTE | 2025-01-26 09:46 | DI.RAD.S_ITS ---
PROCEDURE: XR LUMBAR SPINE 2-3V INDICATIONS: acute on chronic low back pain TECHNIQUE: 3 views of the lumbar spine were acquired. COMPARISON: None. FINDINGS: Bones: 5 [id number] vertebrae are present. There is normal bony alignment. No vertebral body compression fractures. No suspicious bony lesions. Soft tissues: Overlying bowel gas pattern is normal. No suspicious soft tissue calcifications. IMPRESSION: No acute bony abnormality. Approved by: Jeremy Morrison M.D. on 01/26/2025 at 9:15
[2025-01-26] MEDS: KETOROLAC 30 MG/ML VIAL IM (10:06)
[2025-01-26] MEDS: ACETAMINOPHEN 325 MG TABLET 975 MG PO (11:51)
[2025-01-26] MEDS: predniSONE 20 MG TABLET 60 MG PO (11:52)
== END 2025-01-26 11:59 | disposition home or self-care (01) ==
PROVIDERS: Emergency Provider Emergency Medicine; PCP Family Medicine
DX: M54.50 Low back pain, unspecified (principal)
CPT/HCPCS: 72100; 96372; 99283; J1885

== ENCOUNTER → 2025-05-13 13:24 | Outpatient (CLI) | payer OTHER, SELFPAY ==
[2025-05-13 19:28] LABS: Free T3, Triiodothyronine Free 4.41 pg/mL (2.77-5.27); Free T4, Direct Thyroxine 0.81 ng/dL (0.78-2.19)
[2025-05-13 19:41] LABS: Ferritin 34 ng/mL (6-137); Thyroid Stimulating Hormone 0.459 uIU/mL (0.47-4.68)
== END ==
PROVIDERS: PCP Family Medicine; Visit Provider Family Medicine
DX: R79.0 Abnormal level of blood mineral (principal); R79.89 Other specified abnormal findings of blood chemistry; Z72.820 Sleep deprivation
CPT/HCPCS: 82728; 84439; 84443; 84480; 84481